=== PATIENT | female | born 1995 | race American Indian/Alaskan Native ===

== ENCOUNTER 2020-08-10 19:40 | Emergency (ER) | payer OTHER ==
[2020-08-10 20:03] VITALS: BP 130/81
--- NOTE | 2020-08-10 20:14 | Emergency Department Report ---
ED Female HPI - General Chief complaint: Urogenital-Female Stated complaint: VAGINAL DISCHARGE/SWOLLEN VAGINA Time Seen by Provider: 08/10/20 20:12 Source: patient Mode of arrival: Ambulatory Limitations: No Limitations - History of Present Illness Initial comments: 25-year-old F [place] female status post on July 30 presents emergency department complaining of vaginal discharge white-yellow and and and watery with some irritation swelling and vague discomfort with no suspicion of an STD as she states she is not been sexually active. She is very worried about having a yeast and and an infection and I want to be evaluated she is used she is used [id number] Monistat with with no success presents for follow-up today reports no fever, chills, sweats, no chest pain, no palpitations, no nausea, no no vomiting no hemoptysis, no hematemesis, no hematochezia. Complaint: vaginal discharge - Related Data Previous Rx's Medication Instructions Recorded Last Taken Type metroNIDAZOLE [Flagyl] 500 mg PO Q12HR #20 tab 08/10/20 Unknown Rx Allergies Allergy/AdvReac Type Severity Reaction Status Date / Time No Known Allergies Allergy Unverified 08/10/20 20:02 ED Review of Systems ROS: Stated complaint: VAGINAL DISCHARGE/SWOLLEN VAGINA Other details as noted in HPI Comment: All other systems reviewed and negative ED Past Medical Hx - Past Medical History Previous Medical History?: No - Surgical History Past Surgical History?: No - Social History Smoking Status: Never Smoker Substance Use Type: None - Medications Home Medications: Home Medications Medication Instructions Recorded Confirmed Last Taken Type metroNIDAZOLE [Flagyl] 500 mg PO Q12HR #20 tab 08/10/20 Unknown Rx ED Physical Exam - General Limitations: No Limitations General appearance: alert, in no apparent distress - Head Head exam: Present: atraumatic, normocephalic - Eye Eye exam: Present: normal appearance - ENT ENT exam: Present: mucous membranes moist - Neck Neck exam: Present: normal inspection - Respiratory Respiratory exam: Present: normal lung sounds bilaterally. Absent: respiratory distress - Cardiovascular Cardiovascular Exam: Present: regular rate, normal rhythm. Absent: systolic murmur, diastolic murmur, rubs, gallop - GI/Abdominal GI/Abdominal exam: Present: soft, normal bowel sounds - External exam: Present: erythema, swelling Speculum exam: Present: vaginal discharge (Watery slightly yellowish) Bi-manual exam: Present: other (Nurse client reporting associate was present during the evalua tion) - Extremities Exam Extremities exam: Present: normal inspection - Back Exam Back exam: Present: normal inspection - Neurological Exam Neurological exam: Present: alert, oriented X3 - Psychiatric Psychiatric exam: Present: normal affect, normal mood - Skin Skin exam: Present: warm, dry, intact, normal color. Absent: rash ED Course Vital Signs 08/10/20 19:55 Temperature 98.1 F Pulse Rate 103 H Respiratory 18 Rate Blood Pressure 130/81 O2 Sat by Pulse 100 Oximetry Critical care attestation.: If time is entered above; I have spent that time in minutes in the direct care of this critically ill patient, excluding procedure time. ED Disposition Clinical Impression: Vaginitis Disposition: DC-01 TO HOME OR SELFCARE Is pt being admited?: No Does the pt Need Aspirin: No Condition: Stable Instructions: Bacterial Vaginosis, Vaginitis Prescriptions: metroNIDAZOLE [Flagyl] 500 mg PO Q12HR #20 tab
== END 2020-08-10 21:20 | disposition home or self-care (01) ==
LOC: ED 19:40
DX: N76.0 Acute vaginitis (principal); Z79.899 Other long term (current) drug therapy
CPT/HCPCS: 87210; 99283